=== PATIENT | female | born 1980 | race American Indian/Alaskan Native ===

== ENCOUNTER 2019-09-10 06:03 | Day surgery (SDC) | payer MEDICAID ==
[~2019-09-10 06:03] MED LIST: ceFAZolin/Water 2 GM/20 ML 2 GM/20 ML SYRINGE IV NR
[2019-09-10] MEDS ORDERED: LACTATED RINGERS 1,000 ML ONE ×2 (07:30→09:43)
[2019-09-10] MEDS ORDERED: fentaNYL 100 MCG/2 ML INJ IV NR (07:33)
[2019-09-10] MEDS ORDERED: ONDANSETRON 4 MG/2 ML INJ IV PRN (07:33)
[2019-09-10] MEDS ORDERED: HYDROmorphone 1 MG/1 ML INJ IV PRN (07:33)
--- NOTE | 2019-09-10 07:35 | Anesthesia Day of Surgery ---
Anesthesia Day of Surgery - Day of Surgery Patient Examined: Yes Patient H&P Reviewed: Yes Patient is NPO: Yes
--- NOTE | 2019-09-10 07:37 | Anesthesia Consultation ---
Anesthesia Consult and Med Hx Date of service: 09/10/19 - Airway Anesthetic Teeth Evaluation: Good ROM Head & Neck: Adequate Mental/Hyoid Distance: Adequate Mallampati Class: Class III Intubation Access Assessment: Probably Good - Pre-Operative Health Status Proposed Anesthetic Plan: General Nerve Block: IS - Pulmonary Hx Smoking: No Hx Sleep Apnea: No (LUCIEN PRE SCREEN LOW RISK.) - Cardiovascular System Hx Hypertension: No - Other Systems Hx Cancer: No
[2019-09-10] MEDS ORDERED: BUPIVACAINE-EPINEPHRINE/PF 0.5%-1:200,000 (30 ML) VIAL INFILTRATI ONE (07:45)
[2019-09-10] MEDS ORDERED: LIDOCAINE MPF (2%) 20 MG/1 ML VIAL 5 ML ONE (07:52)
[2019-09-10] MEDS ORDERED: dexAMETHasone 20 MG/5 ML VIAL ONE (07:52)
[2019-09-10] MEDS ORDERED: propofoL 200 MG/20 ML VIAL IV ONE (07:53)
[2019-09-10] MEDS ORDERED: HYDROmorphone 1 MG/1 ML INJ ONE (07:53)
[2019-09-10] MEDS ORDERED: LACTATED RINGERS 1,000 ML IV SCH (08:00)
[2019-09-10] MEDS ORDERED: MIDAZOLAM 2 MG/2 ML INJ IV NR (08:00)
--- NOTE | 2019-09-10 09:54 | Procedure Note ---
Date of procedure: 09/10/19 Pre-op diagnosis: Displaced left distal ulnar fracture Post-op diagnosis: same Procedure: Open reduction internal fixation left ulna Procedure Patient was brought to the OR suite after being given a regional nerve block in preop holding, she was placed on the OR table in the supine position. Following intubation with MAC anesthesia the patient's left upper extremity was prepped and draped in the usual sterile manner. A timeout procedure was done to i dentify the patient and the correct operative site. Utilizing a medial incision along the distal third portion of the forearm this was taken down sharply through skin subcu down to the fracture site following debridement of soft tissue and some early callus the fracture fragments were manipulated and was reduced a temporary K wire was used to transfix the fractures next the 7-hole locked ulnar plate was applied with screws of various lengths including locked and nonlocking screws a AP and lateral x-ray was obtained showing good reduction of the fracture and placement of the hardware following this the wound was then copiously irrigated and was closed in a standard routine fashion. Postop dressings were applied as well as a well-padded forearm splint Anesthesia: MAC, regional Surgeon: SOHEILA MCDANIEL Business Reporting Developer: JOSE LUIS CISNEROS Estimated blood loss: minimal Pathology: none Condition: stable Disposition: PACU
--- NOTE | 2019-09-10 10:14 | XRay Report ---
LEFT WRIST 2 VIEWS INDICATION: LT ULNA PAIN/ FX /ORIF. COMPARISON: None. IMPRESSION: 3 seconds of fluoroscopy time was provided by radiology during open reduction and application development intern al fixation of a mid to distal ulnar fracture. Alignment is anatomic. The visualized radius and carpa l bones are intact and unremarkable. Signer Name: Kyle Abdi Jr, MD Signed: 09/10/2019 10:09 AM Workstation Name: [id number]
[2019-09-10 11:18] VITALS: BP 123/66
--- NOTE | 2019-09-10 18:15 | Post Anesthesia Evaluation ---
- Post Anesthesia Evaluation Patient Participated: Yes Airway Patent: Yes Stable Respiratory Function: Yes Nausea/Vomiting: No Temp > 96.8F: Yes Pain Manageable: Yes Adequeate Hydration: Yes Anesthesia Complications: Yes Block Receding Appropriately: Yes Patient on Ventilator: No
== END 2019-09-10 11:55 | disposition home or self-care (01) ==
LOC: OR 06:03
PROVIDERS: ATTEND Orthopaedic Surgery
DX: S52.602A Unspecified fracture of lower end of left ulna, initial encounter for closed fracture (principal); Z79.899 Other long term (current) drug therapy; X58.XXXA Exposure to other specified factors, initial encounter; Y93.89 Activity, other specified; Y92.89 Other specified places as the place of occurrence of the external cause; Y99.8 Other external cause status
CPT/HCPCS: 25545; 64417; 73100; 81025; C1713; J0690; J1100; J1170; J2250; J2405; J2704; J3010; J7120